=== PATIENT | female | born 1945 | race Caucasian/White ===

== ENCOUNTER → 2023-10-18 11:50 | Outpatient (REF) | payer MEDICARE, OTHER, SELFPAY | LOC: WDC 11:50 | PROVIDERS: ATTENDING PHYSICIAN Family Medicine | DX: Z12.31 Encounter for screening mammogram for malignant neoplasm of breast (principal) | CPT/HCPCS: 77063; 77067 ==

== ENCOUNTER → 2024-10-19 12:59 | Outpatient (REF) | payer MEDICARE, OTHER, SELFPAY | LOC: WDC 12:59 | PROVIDERS: ATTENDING PHYSICIAN Family Medicine | DX: M85.80 Other specified disorders of bone density and structure, unspecified site (principal); Z12.31 Encounter for screening mammogram for malignant neoplasm of breast; M85.89 Other specified disorders of bone density and structure, multiple sites | CPT/HCPCS: 77063; 77067; 77080 ==